=== PATIENT | male | born 1950 | race Caucasian/White ===

== ENCOUNTER 2021-02-16 10:02 | Outpatient (CLI) | payer MEDICARE, OTHER, SELFPAY ==
--- NOTE | ~2021-02-16 | XR_ITS ---
XR ankle LT min 3V DATE: 02/16/2021 10:43 INDICATION: Chronic left ankle pain TECHNIQUE: 5 views COMPARISON: None FINDINGS: There is degenerative spurring at the tibiotalar joint consistent with osteoarthritis. Ther e is osteophytic change at the tarsal joints. Prominent plantar calcaneal enthesopathy. No fracture or dislocation, periosteal reaction or bone destruction. The ankle mortise is intact. 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 LOGY PROFESSOR
--- NOTE | ~2021-02-16 | XR_ITS ---
XR lumbar spine min 4V DATE: 02/16/2021 10:42 INDICATION: Back pain for one year. No known injury. TECHNIQUE: AP, lateral, bilateral oblique and coned lateral lumbosacral views COMPARISON: None FINDINGS: There is osteopenia. There is 17 degrees rotatory levoscoliosis of the lumbar spine. There is severe multilevel degenerative disc disease of the lumbar spine, particularly at L2-3 throug h L5-S1. There is associated mild retrolisthesis at L4-5 and L5-S1. No spondylolysis is noted. No fracture or bone destruction is detected. The sacroiliac joints are intact. IMPRESSION: Rotatory levoscoliosis and severe multilevel degenerative disc disease of the lumbar spin e Reviewed, dictated and finalized at location A. RESEARCHER IMPRESSION: Rotatory levoscoliosis and severe multilevel degenerative disc dise ase of the lumbar spine
== END 2021-02-16 10:03 | disposition home or self-care (01) ==
LOC: ANHIMG 10:06
PROVIDERS: PCP Family Medicine; Visit Provider Family Medicine
DX: G95.19 Other vascular myelopathies (principal); M19.072 Primary osteoarthritis, left ankle and foot; M77.32 Calcaneal spur, left foot
CPT/HCPCS: 72110; 73610

== ENCOUNTER 2021-10-20 01:49 | Day surgery (SDC) | payer MEDICARE, OTHER, SELFPAY ==
[2021-10-06 11:13] VITALS: BMI 35.2
--- NOTE | 2021-10-19 13:05 | PM.HPGS ---
History of Present Illness History of Present Illness Consent: Risks, benefits, and alternatives have been discussed and questions answered. Patient agrees to proceed with procedure. Chief complaint: gastritis, anemia, neoplasm screening Narrative: Jack Snow is a 70 year old male Referred for colon cancer screening. Review of Systems Review of Systems: All systems reviewed & are unremarkable except as noted in HPI and below PMFSH Past Medical History Medical History Anemia (09/13/21) hemoglobin 12.7, hematocrit 37.5 on 09/13/2021.Hemoglobin 13.3, hematocrit 38.6, iron 85, 25% saturation, ferritin 55, vitamin B12 654, folic acid 24 on 09/22/2021. Body mass index (BMI) of 40.1 to 44.9 in adult Gastritis (~08/2021) Morbid obesity with BMI of 40.0-44.9, adult Neurogenic claudication (~2018) neurogenic claudication in the lower extremities with pain into the inguinal area bilaterally with walking 2 blocks 02/16/2021. x-ray of the lumbar spines reveals severe degenerative disc disease especially at L2-L3 and L5-S1 on 02/16/2021 Spondylosis of lumbar spine (~02/2021) severe lumbar spondylosis on x-ray 02/16/2021. Osteopenia. Family History Family History Father Family history of cardiovascular disease, Onset Age: 52 Acute myocardial infarction, Onset Age: 52 Grandparent Family history of cardiovascular disease, Onset Age: 55 Mother Family history of malignant neoplasm, Onset Age: 84 Social History Social History Smoking status: Never smoker Alcohol intake: never Substance use: never Substance use type: does not use Living arrangements: with family Spiritual care concerns: No Meds Home Medications and Allergies Home Medications Medication Instructions Recorded Confirmed Type fluorouracil 5 % topical cream See Rx Instructions topical BID 03/06/19 10/20/21 History (Efudex) cetirizine 10 mg tablet (Zyrtec) 10 mg PO DAILY PRN allergy symptoms 09/08/19 10/06/21 History atorvastatin 80 mg tablet 80 mg PO DAILY #90 tabs 02/16/21 10/06/21 Rx fluticasone propionate 50 1 spray intranasal BID #48 mL 02/16/21 10/06/21 Rx mcg/actuation nasal spray,suspension (Flonase Allergy Relief) ibuprofen 800 mg tablet 800 mg PO TID PRN pain #270 tabs 02/16/21 10/06/21 Rx irbesartan 300 1 tablet PO DAILY #90 tabs 02/16/21 10/06/21 Rx mg-hydrochlorothiazide 12.5 mg tablet multivitamin 1 tablet PO DAILY 09/22/21 10/06/21 History omeprazole 40 mg capsule,delayed 40 mg PO DAILY PRN Indigestion 10/06/21 10/06/21 History release Allergies Allergy/AdvReac Type Severity Reaction Status Date / Time No Known Allergies Allergy Verified 10/20/21 08:52 Exam Const: Nutritional Appearance: obese Resp: Auscultation: clear to auscultation bilaterally Cardio: Rate: regular rate Rhythm: regular rhythm GI: GI Palp: Yes Soft to palpation and No Tenderness to palpation present (GI) Assessment and Plan Assessment and plan (1) Colon cancer screening: Code(s): Z12.11 - Encounter for screening for malignant neoplasm of colon Status: Acute Assessment and Plan: Colonoscopy with possible biopsy or polypectomy or cautery or injection of substances.
[2021-10-20 08:54] VITALS: BP 151/90; PULSE 77; RESP 18; TEMP 36.2; O2SAT 96
[2021-10-20] MEDS: LACTATED RINGERS 1,000 ML 150 ML IV CONT (09:04)
--- NOTE | 2021-10-20 09:16 | WPDANESEPPF ---
Anes - Initial Pre Proc Eval Procedure: Operation Date: 10/20/21 09:30 Proposed Procedures p Screening Colonoscopy - Jack Richardson MD Date/Time: 10/20/21 09:16 Surgeon: Jack Richardson MD Pre Op Diagnosis: gastritis, anemia, neoplasm screening Patient Data Age: 70 Gender: M Height: 1.78 m Weight: 117.2 kg Last Vital Signs Temp 97.1 F L 10/20/21 08:54 Pulse 77 10/20/21 08:54 Resp 18 10/20/21 08:54 BP 151/90 H 10/20/21 08:54 Pulse Ox 96 10/20/21 08:54 O2 Del Method Room Air 10/20/21 08:54 Allergies Allergy/AdvReac Type Severity Reaction Status Date / Time No Known Allergies Allergy Verified 10/20/21 08:52 Home Medications Medication Instructions Recorded Confirmed Type fluorouracil 5 % topical cream See Rx Instructions topical BID 03/06/19 10/20/21 History (Efudex) cetirizine 10 mg tablet (Zyrtec) 10 mg PO DAILY PRN allergy symptoms 09/08/19 10/06/21 History atorvastatin 80 mg tablet 80 mg PO DAILY #90 tabs 02/16/21 10/06/21 Rx fluticasone propionate 50 1 spray intranasal BID #48 mL 02/16/21 10/06/21 Rx mcg/actuation nasal spray,suspension (Flonase Allergy Relief) ibuprofen 800 mg tablet 800 mg PO TID PRN pain #270 tabs 02/16/21 10/06/21 Rx irbesartan 300 1 tablet PO DAILY #90 tabs 02/16/21 10/06/21 Rx mg-hydrochlorothiazide 12.5 mg tablet multivitamin 1 tablet PO DAILY 09/22/21 10/06/21 History omeprazole 40 mg capsule,delayed 40 mg PO DAILY PRN Indigestion 10/06/21 10/06/21 History release Patient hx anesthesia problems: none Family hx anesthesia problems: none Results Review: All pre-operative results and documents have been reviewed as part of the pre-operative evaluation. [facility] Past Medical History Medical History Anemia (09/13/21) hemoglobin 12.7, hematocrit 37.5 on 09/13/2021.Hemoglobin 13.3, hematocrit 38.6, iron 85, 25% saturation, ferritin 55, vitamin B12 654, folic acid 24 on 09/22/2021. Body mass index (BMI) of 40.1 to 44.9 in adult Gastritis (~08/2021) Morbid obesity with BMI of 40.0-44.9, adult Neurogenic claudication (~2019) neurogenic claudication in the lower extremities with pain into the inguinal area bilaterally with walking 2 blocks 02/16/2021. x-ray of the lumbar spines reveals severe degenerative disc disease especially at L2-L3 and L5-S1 on 02/16/2021 Spondylosis of lumbar spine (~02/2021) severe lumbar spondylosis on x-ray 02/16/2021. Osteopenia. Family History Family History Father Family history of cardiovascular disease, Onset Age: 52 Acute myocardial infarction, Onset Age: 52 Grandparent Family history of cardiovascular disease, Onset Age: 55 Mother Family history of malignant neoplasm, Onset Age: 84 Social History Social History Smoking status: Never smoker Alcohol intake: never Substance use: never Substance use type: does not use Living arrangements: with family Spiritual care concerns: No Anes - Eval Final PreProcedure Day of Procedure 10/20/21 09:16 Patient weight: obese Heart: regular rate and rhythm Lungs: clear to auscultation Airway: Mallampati scale class II Neurological: alert and oriented Last oral intake: >/= 8 hours ASA classification: III Emergent: no Anesthetic plan: proceed Anesthesia type and monitoring: general GIVS and standard monitoring Results Review: All pre-operative results and documents have been reviewed as part of the pre-operative evaluation. Informed Consent: The patient's anesthetic plan and its attendant risks and benefits were discussed with the patient/family/POA. Questions were solicited and answers provided to the satisfaction of the patient/family/POA.
[2021-10-20 09:44] VITALS: BP 143/92; PULSE 66; RESP 22; O2SAT 94
[2021-10-20 09:54] VITALS: BP 137/81; PULSE 66; RESP 21; O2SAT 97
[2021-10-20 10:04] VITALS: BP 154/98; PULSE 68; RESP 14; O2SAT 99
== END 2021-10-20 10:12 | disposition home or self-care (01) ==
PROVIDERS: PCP Family Medicine; Visit Provider Internal Medicine Gastroenterology
PROC: 0DJD8ZZ Inspection of Lower Intestinal Tract, Via Natural or Artificial Opening Endoscopic (ICD-10-PCS; CPT 45378; principal; 2021-10-20 09:30)
DX: Z12.11 Encounter for screening for malignant neoplasm of colon (principal); K57.30 Diverticulosis of large intestine without perforation or abscess without bleeding; K63.5 Polyp of colon; D64.9 Anemia, unspecified; M48.062 Spinal stenosis, lumbar region with neurogenic claudication; M51.36 Other intervertebral disc degeneration, lumbar region; M47.816 Spondylosis without myelopathy or radiculopathy, lumbar region; E66.9 Obesity, unspecified; Z68.37 Body mass index [BMI] 37.0-37.9, adult
CPT/HCPCS: 45380; 88305; J2704; J7120

== ENCOUNTER → 2023-11-01 09:32 | Outpatient (CLI) | payer MEDICARE, OTHER, SELFPAY ==
--- NOTE | ~2023-11-01 | XR_ITS ---
EXAMINATION: XR hip LT 2V w AP pelvis DATE: 11/01/2023 09:49 INDICATION: Left hip pain. TECHNIQUE: An anteroposterior view of the pelvis and 2 views of left hip were obtained. COMPARISON: None. FINDINGS: There is lumbar levoscoliosis and severe spondylosis. No fracture. There is mild right hip osteoarthritis and severe left hip osteoarthritis. IMPRESSION: 1. Mild right hip osteoarthritis and severe left hip osteoarthritis. Reviewed, dictated and finalized at location A.
== END ==
PROVIDERS: PCP Family Medicine; Visit Provider Family Medicine
DX: M16.0 Bilateral primary osteoarthritis of hip (principal)
CPT/HCPCS: 73502

== ENCOUNTER 2025-01-19 11:55 | Outpatient (CLI) | payer MEDICARE, OTHER, SELFPAY ==
--- NOTE | ~2025-01-19 | XR_ITS ---
XR lumbar spine min 4V Indication: M47.816 - Spondylosis without myelopathy or radiculopathy... Comparison: None Findings: Levoconvex scoliosis. Moderate loss of vertebral height throughout. No acute fracture or subluxation. Severe loss of disc height is noted throughout. Soft tissues unremarkable Impression: No acute abnormality. Reviewed, dictated and finalized at location P. PUSHER Impression: No acute abnormality.
--- NOTE | ~2025-01-19 | XR_ITS ---
EXAMINATION: XR hip LT min 2V, 01/19/2025 12:00 CATIA DESIGNER HISTORY: M25.552 - Pain in left hip, chronic COMPARISON: No comparisons available. Findings: No acute fracture or malalignment. 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 Impression: No acute fracture or malalignment. Reviewed, dictated and finalized at location P. A DESIGNER Impression: No acute fracture or malalignment.
== END 2025-01-19 11:56 | disposition home or self-care (01) ==
PROVIDERS: PCP Family Medicine; Visit Provider Family Medicine
DX: M25.552 Pain in left hip (principal); M47.816 Spondylosis without myelopathy or radiculopathy, lumbar region; G89.29 Other chronic pain
CPT/HCPCS: 72110; 73502